=== PATIENT | male | born 1975 | race Caucasian/White ===

== ENCOUNTER 2017-10-17 06:54 | Emergency (ER) | payer OTHER ==
--- NOTE | 2017-10-17 07:07 | ED.PDOC ---
History of Present Illness - General Chief Complaint: Abdominal Pain Stated Complaint: left flank pain Time Seen by Provider: 10/17/17 07:06 Information Source: patient Exam Limitations: no limitations - History of Present Illness Initial Comments: Rui Saba 42 y/o male stated that he had feeling of going to urinate most of the time one week ago and seen hi primary md Donnell done urinalysis -result showing no abnormalities. But starting yesterday had intermittent pulsating pain left flank which got worse this am.No N/V/D,able to eat last night,no blood in urine,no fever,no cough,no constipation,or melena or fever.Denies chronic medical problem. Abdominal Pain Onset Location: LLQ, flank Pain Radiation: groin Quality: intermittent, waxing/waning Timing/Duration: 24 hours Improving Factors: nothing Worsening Factors: nothing Associated Symptoms: denies symptoms Review of Systems - Review of Systems Constitutional: States: no symptoms reported EENTM: States: no symptoms reported Respiratory: States: no symptoms reported Cardiology: States: no symptoms reported Gastrointestinal/Abdominal: States: see HPI, other - left flank pain Genitourinary: States: frequency Musculoskeletal: States: no symptoms reported Skin: States: no symptoms reported Neurological: States: no symptoms reported Past Medical History (General) - Patient Medical History Hx Hypertension: No Hx Diabetes: No Surgical History: no surgical history - Social History Hx Tobacco Use: No Hx Substance Use: No Hx Physical Abuse: No Hx Emotional Abuse: No Hx Suspected Abuse: No - Activities of Daily Living Patient Lives Alone: No Family Medical History - Family History Grandparents Family History: Unknown Hx Family Diabetes: Yes - mom Hx Family Cancer: Yes - dad-urinary blaadder Physical Exam - Physical Exam General Appearance: Alert, Anxious, No apparent distress Eyes, Ears, Nose, Throat Exam: normal ENT inspection Neck: non-tender, supple Respiratory: chest non-tender, lungs clear, normal breath sounds Cardiovascular/Chest: normal peripheral pulses, regular rate, rhythm, no murmur Peripheral Pulses: No deficit Gastrointestinal/Abdominal: normal bowel sounds, non tender, soft, tenderness - left side abdomen Back Exam: normal inspection, no CVA tenderness, no vertebral tenderness Extremity: normal inspection, no pedal edema, no calf tenderness Neurologic: alert, oriented x 3 Progress - Progress Progress: 10/17/17 08:23 Vital Signs - 8 hr 10/17/17 10/17/17 07:15 08:15 Temperature 97.8 F Pulse Rate [L 66 53 L Arm] Respiratory 22 18 Rate Blood Pressure 96/48 120/75 [L Arm] O2 Sat by Pulse 97 Oximetry - Results/Orders Results/Orders: 10/17/17 07:32 Lactated Ringers [Lr] 1,000 ml IVS ONCE Laboratory Results - last 24 hr 10/17/17 10/17/17 10/17/17 07:22 07:22 07:22 WBC 6.5 RBC 5.29 Hgb 15.5 Hct 45.3 MCV 85.6 MCH 29.3 MCHC 34.2 RDW 13.3 Plt Count 244 MPV 7.9 Absolute Neuts (auto) 3.40 Absolute Lymphs (auto) 2.10 Absolute Monos (auto) 0.80 Absolute Eos (auto) 0.20 Absolute Basos (auto) 0.00 Neutrophils % 52.2 Lymphocytes % 32.7 Monocytes % 12.0 H Eosinophils % 2.4 Basophils % 0.7 PT 10.8 INR 0.960 PTT (SP) 30.9 Sodium 140 Potassium 3.8 Chloride 106 Carbon Dioxide 28 Anion Gap 9.8 L BUN 13 Creatinine 1.00 BUN/Creatinine Ratio 13.0 Random Glucose 129 H Serum Osmolality 281.2 Calcium 9.4 Magnesium 2.1 Total Bilirubin 0.6 Direct Bilirubin < 0.1 Indirect Bilirubin 0.5 AST 24 ALT 49 Alkaline Phosphatase 88 Creatine Kinase 56 CK-MB (CK-2) 0.9 CK-MB (CK-2) % Not Reportable Troponin I < 0.02 Serum Total Protein 7.4 Albumin 4.0 Lipase 41 Urine Color Urine Appearance Urine pH Ur Specific [place] Urine Protein Urine Glucose (UA) Urine Ketones Urine Blood Urine Nitrite Urine Bilirubin Urine Urobilinogen Ur Leukocyte Esterase Urine RBC Urine WBC Ur Epithelial Cells Urine Bacteria 10/17/17 07:22 WBC RBC Hgb Hct MCV MCH MCHC RDW Plt Count MPV Absolute Neuts (auto) Absolute Lymphs (auto) Absolute Monos (auto) Absolute Eos (auto) Absolute Basos (auto) Neutrophils % Lymphocytes % Monocytes % Eosinophils % Basophils % PT INR PTT (SP) Sodium Potassium Chloride Carbon Dioxide Anion Gap BUN Creatinine BUN/Creatinine Ratio Random Glucose Serum Osmolality Calcium Magnesium Total Bilirubin Direct Bilirubin Indirect Bilirubin AST ALT Alkaline Phosphatase Creatine Kinase CK-MB (CK-2) CK-MB (CK-2) % Troponin I Serum Total Protein Albumin Lipase Urine Color Yellow Urine Appearance Clear Urine pH 5.5 Ur Specific [place] >= 1.030 Urine Protein 100 H Urine Glucose (UA) Negative Urine Ketones Negative Urine Blood Large H Urine Nitrite Negative Urine Bilirubin Moderate Urine Urobilinogen 1.0 Ur Leukocyte Esterase Negative Urine RBC 10-20 H Urine WBC 0 Ur Epithelial Cells 1-3 Urine Bacteria 0 - EKG/XRAY/CT CT Ordered: Yes - abd/p- 6-7 mm ureteral stone uv jucnction left Departure - Departure Clinical Impression: Left ureteral calculus, Bilateral nephrolithiasis, Acute left flank pain Time of Disposition: 08:29 Disposition: Discharge to Home or Self Care Condition: Good Departure Forms: ED Discharge - Pt. Copy, Patient Portal Self Enrollment Instructions: Kidney Stones -- Adult, Kidney Stones (Alternative Therapy), DI for Kidney Stones Prescriptions: Acetamin W/Cod #3 Tab [Tylenol w/CODEINE #3] 1 ea PO Q4HR PRN #14 tab PRN Reason: Pain Tamsulosin HCl [Flomax] 0.4 mg PO DAILY #7 cap Home Medications: Ambulatory Orders Acetamin W/Cod #3 Tab [Tylenol w/CODEINE #3] 1 ea PO Q4HR PRN #14 tab 10/17/17 Tamsulosin HCl [Flomax] 0.4 mg PO DAILY #7 cap 10/17/17 Additional Instructions: Return to emergency room as needed;Follow up with primary Md 10/19/2017;STRAIN urine for urology consult;Increase oral fluid intake;Also take ALEVE (otc) 1-2 tablets am/pm for pain
[2017-10-17] MEDS ORDERED: PROMETHAZINE HCL INJ 25 MG/ML VIAL IM ONE (07:19)
[2017-10-17] MEDS ORDERED: TAMSULOSIN 0.4 MG CAP PO ONE (07:19)
[2017-10-17] MEDS ORDERED: MORPHINE SULFATE INJ 10 MG/ML VIAL IV ONE (07:19)
[2017-10-17] MEDS ORDERED: KETOROLAC TROMETHAMINE INJ 30 MG/ML VIAL IM ONE (07:19)
[2017-10-17] MEDS ORDERED: KETOROLAC TROMETHAMINE INJ 30 MG/ML VIAL IV ONE (07:31)
[2017-10-17] MEDS ORDERED: LACTATED RINGERS 1,000 ML IVS ONE (07:32)
--- NOTE | 2017-10-17 07:55 | CT ---
EXAM DESCRIPTION: Abdoment/Pelvis w/o Contrast CLINICAL HISTORY: 42 years, Male, pain COMPARISON: None. TECHNIQUE: CT of the abdomen and pelvis is performed according to our non contrast protocol. FINDINGS: The lung bases are clear. Heart size is normal. Liver, spleen, and pancreas are unremarkable. Normal adrenal glands. Hiatal hernia is seen in the lower chest. Stomach below the diaphragm is normal in appearance. Normal bowel loops. Gallbladder is unremarkable. Bilateral renal calculi are present. 2 to 3 mm calculi in the lower right kidney are present with no dilatation of the right urinary collecting system or ureteral stone. On the left, there is distention of the intrarenal collecting system. A stone is seen in the lower calyx of left kidney measuring 3 mm. Following the dilated left ureter distally, high density stone is seen in the distal ureter near the ureterovesical junction which measures 6 mm. No stones in the bladder. There is no lymphadenopathy, inflammation, or free fluid observed. In the pelvis, the appendix appears normal. No inflammation around the cecum or terminal ileum. No inflammation around the sigmoid colon. Numerous sigmoid diverticula are present. Prostate is prominent measuring 4.7 cm in transverse dimension. Some coarse calcifications are seen in and around the prostate gland. Other pelvic calcifications may be lymph nodes or phleboliths. No bony lesion on the bone window images. Coronal and sagittal reformatted images confirm the findings. On the sagittal images, the distal left ureteral stone is measured as 7 mm. IMPRESSION: Distal left ureteral calculus with left hydroureteronephrosis. Smaller nonobstructing calculi are present in both kidneys This exam was performed according to our departmental dose-optimization program, which includes automated exposure control, adjustment of the mA and/or kV according to patient size and/or use of iterative reconstruction technique. Total DLP equals 1553.11 mGycm. Electronically signed by: Emir Cheatham MD 10/17/2017 7:54 AM YOU[employer] PROGRAM DIRECTOR
[2017-10-17 08:20] VITALS: TEMP 97.8
[2017-10-17 09:07] VITALS: BP 121/79; O2SAT 99
== END 2017-10-17 09:07 | disposition home or self-care (01) ==
LOC: ER 06:54
DX: N20.2 Calculus of kidney with calculus of ureter (principal)
CPT/HCPCS: 36415; 74176; 80048; 80076; 81001; 82550; 82553; 83690; 84484; 85025; 85610; 85730; J1885; J2270; J2550; J7120

== ENCOUNTER → 2017-12-09 | Outpatient (CLI) | payer OTHER ==
--- NOTE | 2017-12-10 12:23 | RAD ---
EXAM DESCRIPTION: Abdomen 1 View CLINICAL HISTORY: Calculus of kidney COMPARISON: Previous CT October 17, 2017 TECHNIQUE: KUB FINDINGS: There is an unremarkable bowel gas pattern. No stones are seen in the included portions of the renal silhouettes. Calcifications in the pelvis are thought to be phleboliths. Previous CT showed a distal left ureteral calculus with left hydroureteronephrosis. The only calcification left pelvis seen on the x-ray is typical of a phlebolith and below the level of the ischial spine. IMPRESSION: Pelvic calcifications are thought to be phleboliths. No identified renal or ureteral calculi. Electronically signed by: Emir Cheatham MD 12/10/2017 12:21 PM CDT
== END ==
LOC: RAD 13:58
PROVIDERS: ATTEND Urology
DX: N20.0 Calculus of kidney (principal)

== ENCOUNTER → 2017-12-16 | Outpatient (CLI) | payer OTHER ==
--- NOTE | 2017-12-17 08:49 | RAD ---
EXAM DESCRIPTION: IVP Intravenous Pyelogram CLINICAL HISTORY: 42 years Male, URETERAL STONE distal left on previous CT scan. Bilateral intrarenal stones. COMPARISON: Abdomen 1 view 12/10/2017. CT scan abdomen and pelvis 10/17/2017. TECHNIQUE: Supine AP sanitary chemist image of the abdomen. Nonionic IV contrast injected followed by immediate AP kidneys. Five minute Supine AP abdomen and pelvis. 10 minute Bilateral supine oblique AP abdomen and pelvis. 10 minute AP pelvis. 15 minute AP supine abdomen and pelvis. 20 minute AP prone abdomen and pelvis. Post void AP supine abdomen and pelvis. No adverse reactions. FINDINGS: On the sanitary chemist film, no radio dense stones are visualized. Radiodense nodule in the right pelvis is also present on the prior study. Upper renal shadows are not on the image. Immediately after contrast injected, nephrograms appear symmetric. Upper aspect of both kidneys are not on the image. Collecting systems are both well demonstrated on the 5 minute and 10 minute images along with bilateral ureters. No hydronephrosis or hydroureter. No mass effect on the collecting systems or ureters. On the 15 minute image, the upper collecting systems bilaterally are not on the image. No mass effect or obvious intrinsic mass in the urinary bladder which is moderately filled with contrast. 20 minute kidney images show entire kidneys and collecting systems and are unremarkable. Minimal residual urine in the bladder post void with normal caliber of the distal ureters. IMPRESSION: 1. IVP showing no obstruction in the bilateral collecting systems and bilateral ureters. No mass effect on the collecting systems or ureters bilaterally. 2. Minimal residual postvoid contrast in urine. Electronically signed by: Anshul Almazan MD 12/17/2017 8:48 AM CDT
== END ==
LOC: RAD 08:40
PROVIDERS: ATTEND Urology
DX: N20.0 Calculus of kidney (principal); N20.1 Calculus of ureter; R35.0 Frequency of micturition

== ENCOUNTER → 2020-08-07 | Outpatient (CLI) | payer OTHER | LOC: GMA MATASK 17:27 | PROVIDERS: ATTEND Family Medicine | DX: Z00.00 Encounter for general adult medical examination without abnormal findings (principal); Z12.5 Encounter for screening for malignant neoplasm of prostate ==

== ENCOUNTER → 2020-09-19 | Outpatient (CLI) | payer OTHER | LOC: GMA MATASK 13:31 | PROVIDERS: ATTEND Family Medicine | DX: E29.1 Testicular hypofunction (principal) ==